=== PATIENT | male | born 1960 | race American Indian/Alaskan Native ===

== ENCOUNTER 2021-12-26 04:44 | Emergency (ER) | payer OTHER ==
[2021-12-26 04:50] VITALS: BP 173/108
--- NOTE | 2021-12-30 13:46 | Electrocardiograph Report ---
[facility] Test Date: 2021-12-26 Test Time: 04:53:48 Pat Name: FABIAN RAINES Department: Room: Gender: M Bag Machine Tender: ASMITA Irby : 1960 Requested By: TYRESE CORREIA Order Number: [id number] Reading MD: Chantelle Murillo Measurements Intervals [place] Rate: 95 P: 51 CT: 225 QRS: -53 QRSD: 85 T: 30 QT: 382 QTc: 481 Interpretive Statements Sinus rhythm Prolonged CT interval Left axis deviation Low voltage QRS No previous ECG available for comparison Electronically Signed On 12-30-2021 13:46:21 EDT by Chantelle Murillo
== END 2021-12-26 08:41 | disposition left against medical advice (07) ==
LOC: ED 04:44
DX: R07.9 Chest pain, unspecified (principal); R06.02 Shortness of breath; Z53.21 Procedure and treatment not carried out due to patient leaving prior to being seen by health care provider
CPT/HCPCS: 93005